=== PATIENT | female | born 1940 | race Caucasian/White ===

== ENCOUNTER 2020-04-01 11:37 | Outpatient (CLI) | payer OTHER, SELFPAY | END 2020-04-01 11:38 | disposition home or self-care (01) | LOC: CHSLAB 11:43 | PROVIDERS: PCP Internal Medicine; Visit Provider Specialist | DX: L85.9 Epidermal thickening, unspecified (principal); C44.41 Basal cell carcinoma of skin of scalp and neck | CPT/HCPCS: 88305 ==

== ENCOUNTER 2020-05-15 08:33 | Outpatient (CLI) | payer OTHER, SELFPAY ==
--- NOTE | 2020-05-15 09:04 | ECHO_ITS ---
Patient Info Name: Es Powell Age: 80 years : 1940 Gender: Female Ht: 62 in Wt: 154 lbs BSA: 1.77 m2 HR: 65 bpm BP: 156 / 71 mmHg Technical Quality: Good Exam Date: 05/15/2020 9:07 AM Exam Location: [facility] Patient Status: Outpatient Admit Date: 05/15/2020 Staff Ordering Physician: Alok Cross DO Sash Installer: Fang Olivares RDCS Attending Provider: Alok Cross DO Referring Physician: Tay ALICIA; Exam Type: CA echo doppler color flow Study Info Indications - cardiac murmur Complete two-dimensional, color flow and Doppler transthoracic echocardiogram is performed. Summary 1. Left ventricular chamber dimension is normal. 2. Left ventricular systolic function is normal, estimated at 65-70%. 3. The left ventricular diastolic function is grade I diastolic dysfunction. 4. E/e' 11 is mildly elevated. 5. There is mild aortic valve sclerosis. 6. The mitral valve has mildly calcified annulus. 7. There is mild mitral valve regurgitation. 8. There is mild tricuspid valve regurgitation. 9. No pulmonary hypertension, estimated pulmonary arterial systolic pressure is 37 mmHg. Left Ventricle E/e' 11 is mildly elevated. Left ventricular chamber dimension is normal. Left ventricular systolic function is normal, estimated at 65-70%. The left ventricular diastolic function is grade I diastolic dysfunction. Right Ventricle Right ventricular chamber dimension is normal. Right ventricular systolic function is normal. Left Atria Left atrial chamber dimension is normal. Right Atria Right atrial chamber dimension is normal. Aortic Valve The aortic valve is probable trileaflet. There is mild aortic valve sclerosis. There is no aortic valve stenosis. There is no aortic valve regurgitation. Pulmonic Valve There is no pulmonic regurgitation. Mitral Valve The mitral valve has mildly calcified annulus. There is no mitral valve stenosis. There is mild mitral valve regurgitation. Tricuspid Valve There is mild tricuspid valve regurgitation. No pulmonary hypertension, estimated pulmonary arterial systolic pressure is 37 mmHg. Pericardium/Pleural There is no pericardial effusion. Inferior Vena Cava Normal inferior vena cava with >50% collapse upon inspiration consistent with normal right atrial pressure, 5 mmHg. Aorta The aortic root size at the sinus of Valsalva is normal. Left Ventricular Outflow Tract Name Value Normal LVOT 2D LVOT Diameter 2.0 cm LVOT Doppler LVOT Peak Gradient 5 mmHg LVOT Mean Gradient 3 mmHg LVOT VTI 27 cm LVOT VTI/AV VTI Ratio 0.7 LVOT Stroke Volume 82 ml LVOT CO 14.8 l/min LVOT CI 8.3 l/min/m2 Pulmonic Valve Name Value Normal PV Doppler
== END 2020-05-15 08:34 | disposition home or self-care (01) ==
PROVIDERS: PCP Internal Medicine; Visit Provider Internal Medicine Cardiovascular Disease
DX: R01.1 Cardiac murmur, unspecified (principal); I08.3 Combined rheumatic disorders of mitral, aortic and tricuspid valves
CPT/HCPCS: 93306

== ENCOUNTER 2021-04-26 09:46 | Outpatient (CLI) | payer OTHER, SELFPAY ==
--- NOTE | ~2021-04-26 | US_ITS ---
EXAMINATION: US carotid duplex BI DATE: 04/26/2021 11:54 INDICATION: Carotid bruit TECHNIQUE: Grayscale, color Doppler, and pulsed Doppler images of the cervical carotid arteries were obtained. The degree of vessel stenosis is placed in one of the following categories: normal, <50%, 5 0-69%, >=70% but less than near-occlusion, near-occlusion, or total occlusion. Note that percent sten osis relative to normal distal artery lumen diameter is indirectly measured from velocity measurement s as described by Dejon, et al. Radiology 2003; 229:340-346. Notes: Normal: Peak systolic velocity <125 centimeters/sec and no plaque <50%. Peak systolic velocity <125 ( EDV <40; ICA/CCA PSV ratio <2.0; used these factors only a tandem lesions or low cardiac output or co ntralateral disease) 50-69 %: PSV 125-230 (EDV 40-100; ratio 2-4) >= 70% but less than near occlusion: PSV greater than 230 (EDV > 100; ratio> 4.0) Near Occlusion: PSV that is variable; markedly narrowed lumen Occlusion: Absent flow on color/spectral Doppler and no lumen on tapia scale. COMPARISON: None. FINDINGS: RIGHT: The right common carotid artery (CCA) peak systolic velocity (PSV) is 93 cm/s. The right internal car otid artery (ICA) PSV is 152 cm/s. The right ICA end-diastolic velocity (EDV) is 40 cm/s. The right I CA/CCA PSV ratio is 1.6. The external carotid artery (ECA) PSV is 165 cm/s. There is antegrade flow i n the right vertebral artery. LEFT: The left CCA PSV is 105 cm/s. The left ICA PSV is 155 cm/s. The left ICA EDV is 30 cm/s. The left ICA /CCA PSV ratio is 1.5. The ECA PSV is 137 cm/s. There is antegrade flow in the left vertebral artery . IMPRESSION: 1. 50-69% stenosis in the right internal carotid artery by sonographic criteria. 2. 50-69% stenosis in the left internal carotid artery by sonographic criteria. Reviewed, dictated and finalized at location A. IMPRESSION: 1. 50-69% stenosis in the right internal carotid artery by sonographic criteria . 2. 50-69% stenosis in the left internal carotid artery by sonographic criteria.
--- NOTE | ~2021-04-26 | MR_ITS ---
EXAMINATION: MR cervical spine wo con DATE: 04/26/2021 11:03 INDICATION: Neck pain. TECHNIQUE: Magnetic resonance imaging (MRI) of the cervical spine was performed without intravenous c ontrast. Sequences included sagittal T2-weighted FSE, sagittal STIR FSE, sagittal T1-weighted FSE, ax ial MERGE, and axial T2-weighted FSE. COMPARISON: None FINDINGS: Bone alignment is normal. Vertebral body heights are normal. There is mild decreased disc h eight at C3-C4. There is severely decreased disc height at C4-C5 with interbody fusion. There is mode rately decreased disc height at C5-C6 and mildly decreased disc height at C6-C7. The spinal cord sign al intensity is normal. The following disc levels are specifically discussed: C2-C3: The disc does not extend beyond the endplate margin. There is no uncovertebral joint osteoarth ritis. There is severe right and mild left facet joint osteoarthritis. There is mild right neural for aminal stenosis. There is no central canal stenosis. C3-C4: There is a central protrusion. There is moderate bilateral uncovertebral joint osteoarthritis. There is severe bilateral facet joint osteoarthritis. There is moderate and mild left neural foramin al stenosis. There is mild central canal stenosis with ventral indentation of the spinal cord. C4-C5: The disc does not extend beyond the endplate margin. There is mild bilateral uncovertebral ra nt hypertrophy. There is ankylosis of the facet joints with moderate hypertrophy. There is no neural foraminal stenosis. There is no central canal stenosis. C5-C6: The disc is bulging. There is severe bilateral uncovertebral joint osteoarthritis. There is se abdulaziz bilateral facet joint osteoarthritis. There is mild bilateral neural foraminal stenosis. There i s mild central canal stenosis with ventral indentation of the spinal cord. C6-C7: The disc is bulging. There is mild bilateral uncovertebral joint osteoarthritis. There is srinivasan re bilateral facet joint osteoarthritis. There is mild bilateral neural foraminal stenosis. There is mild central canal stenosis. C7-T1: The disc does not extend beyond the endplate margin. There is no uncovertebral joint osteoarth ritis. There is moderate bilateral facet joint osteoarthritis. There is mild bilateral neural foramin al stenosis. There is no central canal stenosis. IMPRESSION: 1. Moderate cervical spondylosis. Reviewed, dictated and finalized at location A.
== END 2021-04-26 09:47 | disposition home or self-care (01) ==
PROVIDERS: PCP Internal Medicine; Visit Provider Internal Medicine
DX: M47.892 Other spondylosis, cervical region (principal); I65.23 Occlusion and stenosis of bilateral carotid arteries
CPT/HCPCS: 72141; 93880

== ENCOUNTER 2022-12-31 11:54 | Outpatient (CLI) | payer MEDICARE, SELFPAY ==
[2022-12-31 12:25] LABS: Alanine Aminotransferase 24 U/L (6-35); Albumin Level 4.2 g/dL (3.5-5.1); Alkaline Phosphatase 103 U/L (38-126); Anion Gap 2 mmol/L (8-16); Aspartate Amino Transferase 31 U/L (14-36); Bilirubin,Total 0.4 mg/dL (0.2-1.3); Blood Urea Nitrogen 24 mg/dL (7-17); Calcium 9.6 mg/dL (8.4-10.2); Carbon Dioxide 33 mmol/L (22-30); Chloride 103 mmol/L (98-107); Cholesterol 197 mg/dL (0-200); Estimated Glomerular Filt Rate 53; Glucose 83 mg/dL (65-110); HDL Direct 47 mg/dL; Magnesium 2.2 mg/dL (1.6-2.3); Potassium 4.2 mmol/L (3.4-5.0); Sodium 138 mmol/L (137-145); Triglycerides 172 mg/dL (<150)
[2022-12-31 12:36] LABS: LDL Cholesterol Direct 107 mg/dL
== END 2022-12-31 11:55 | disposition home or self-care (01) ==
LOC: ANHLAB 11:58
PROVIDERS: PCP Internal Medicine; Visit Provider Internal Medicine Cardiovascular Disease
DX: E78.5 Hyperlipidemia, unspecified (principal)
CPT/HCPCS: 36415; 80053; 80061; 83735

== ENCOUNTER 2023-01-20 12:11 | Outpatient (CLI) | payer MEDICARE, SELFPAY ==
--- NOTE | ~2023-01-20 | US_ITS ---
EXAMINATION: US carotid duplex BI DATE: 01/20/2023 15:10 INDICATION: Occlusion and stenosis of unspecified carotid artery TECHNIQUE: Grayscale, color Doppler, and pulsed Doppler images of the cervical carotid arteries were obtained. The degree of vessel stenosis is placed in one of the following categories: normal, <50%, 5 0-69%, >=70% but less than near-occlusion, near-occlusion, or total occlusion. Note that percent sten osis relative to normal distal artery lumen diameter is indirectly measured from velocity measurement s as described by Dejon, et al. Radiology 2003; 229:340-346. COMPARISON: None. FINDINGS: RIGHT: The right common carotid artery (CCA) peak systolic velocity (PSV) is 76 cm/s. The right internal car otid artery (ICA) PSV is 89 cm/s. The right ICA end-diastolic velocity (EDV) is 17 cm/s. The right IC A/CCA PSV ratio is 1.2. Grayscale and color Doppler images yield an estimate of <50% diameter reducti on from plaque in the ICA. The external carotid artery (ECA) PSV is 103 cm/s. There is antegrade flow in the right vertebral artery. LEFT: The left CCA PSV is 103 cm/s. The left ICA PSV is 90 cm/s. The left ICA EDV is 21 cm/s. The left ICA/ CCA PSV ratio is 0.9. Grayscale and color Doppler images yield an estimate of <50% diameter reduction from plaque in the ICA. The ECA PSV is 87 cm/s. There is antegrade flow in the left vertebral artery . IMPRESSION: 1. <50% stenosis in the right internal carotid artery. 2. <50% stenosis in the left internal carotid artery. Reviewed, dictated and finalized at location A.
--- NOTE | 2023-01-20 12:13 | ECHO_ITS ---
Patient Info Name: Es Powell Age: 82 years : 1940 Gender: Female Ht: 61 in Wt: 258 lbs BSA: 2.32 m2 HR: 54 bpm BP: 145 / 77 mmHg Technical Quality: Fair Exam Date: 01/20/2023 1:05 PM Exam Location: [facility] Patient Status: Outpatient Admit Date: 01/20/2023 Staff Ordering Physician: Alok Cross DO Maintenance Supervisor 2Nd Shift: Rosalie Cano RDCS Attending Provider: Alok Cross DO Referring Physician: Tay ALICIA; Exam Type: CA echo doppler color flow Study Info Indications R60.0 - Localized edema Complete two-dimensional, color flow and Doppler transthoracic echocardiogram is performed. Summary 1. Complete two-dimensional, color flow and Doppler transthoracic echocardiogram is performed. 2. Left ventricular chamber dimension is normal. 3. Left ventricular systolic function is normal, estimated at 60-65%. 4. There is mild concentric increased left ventricular wall thickness. 5. The left ventricular diastolic function is grade I diastolic dysfunction. 6. E/e' 14 is mildly elevated. 7. Global longitudinal strain is abnormal at -15.4%. 8. There is mild aortic valve sclerosis. 9. There is mild mitral valve regurgitation. 10. There is trace tricuspid valve regurgitation. 11. Mild pulmonary hypertension, estimated pulmonary arterial systolic pressure is 40 mmHg. Left Ventricle E/e' 14 is mildly elevated. Global longitudinal strain is abnormal at -15.4%. Left ventricular chamber dimension is normal. Left ventricular systolic function is normal, estimated at 60-65%. There is mild concentric increased left ventricular wall thickness. The left ventricular diastolic function is grade I diastolic dysfunction. Right Ventricle Right ventricular systolic function is normal and with normal TAPSE 2.1 cm. Right ventricular chamber dimension is normal. Left Atria Left atrial chamber dimension is normal. Right Atria Right atrial chamber dimension is normal. Aortic Valve The aortic valve is trileaflet. There is mild aortic valve sclerosis. There is no aortic valve stenosis. There is no aortic valve regurgitation. Pulmonic Valve There is no pulmonic regurgitation. Mitral Valve There is no mitral valve stenosis. There is mild mitral valve regurgitation. Tricuspid Valve There is trace tricuspid valve regurgitation. Mild pulmonary hypertension, estimated pulmonary arterial systolic pressure is 40 mmHg. Pericardium/Pleural There is no pericardial effusion. Inferior Vena Cava Normal inferior vena cava with >50% collapse upon inspiration consistent with normal right atrial pressure, 5 mmHg. Aorta The aortic root size at the sinus of Valsalva is normal. Left Ventricular Outflow Tract Name Value Normal LVOT 2D LVOT Diameter 1.9 cm LVOT Doppler LVOT Peak Gradient 4 mmHg LVOT Mean Gradient 3 mmHg LVOT VTI 29 cm LVOT VTI/AV VTI Ratio 0.7 LVOT Stroke Volume 80 ml LVOT CO 4.3 l/min LVOT C
== END 2023-01-20 12:12 | disposition home or self-care (01) ==
LOC: ANHCARD 12:12
PROVIDERS: PCP Internal Medicine; Visit Provider Internal Medicine Cardiovascular Disease
DX: I65.23 Occlusion and stenosis of bilateral carotid arteries (principal); R60.0 Localized edema; I08.0 Rheumatic disorders of both mitral and aortic valves; I27.20 Pulmonary hypertension, unspecified
CPT/HCPCS: 93306; 93880

== ENCOUNTER 2023-09-12 08:00 | Outpatient (CLI) | payer MEDICARE, SELFPAY ==
--- NOTE | ~2023-09-12 | NM_ITS ---
EXAMINATION: NM golden stress w perfusion DATE: 09/12/2023 10:43 INDICATION: Chest pain, unspecified. TECHNIQUE: Rest images were obtained following intravenous administration of 10.8 mCi Tc99m tetrofosm in (Myoview). The patient was infused intravenously with Lexiscan (regadenoson). Then, 32 mCi Tc99m t etrofosmin (Myoview) was administered intravenously, and stress images were obtained. Data was recons tructed into short axis and horizontal and vertical long axis SPECT images. Gated SPECT images were a lso obtained. COMPARISON: Myocardial perfusion imaging 07/20/17 FINDINGS: There is no definite reversible or fixed perfusion abnormality to suggest ischemia or infar ction. There is no segmental wall motion abnormality. Left ventricular ejection fraction measures > 70%. IMPRESSION: 1. No definite ischemia or infarct. 2. Normal left ventricular ejection fraction measuring >70%. Reviewed, dictated and finalized at location A. NICS SHOP SUPERVISOR
--- NOTE | 2023-09-12 09:10 | EST_ITS ---
Patient Info Name: Es Powell Age: 83 years : 1940 Gender: Female Ht: 61 in Wt: 153 lbs BSA: 1.75 m2 HR: 76 bpm BP: 155 / 68 mmHg Heart Rhythm: Sinus Arrhythmia Exam Date: 09/12/2023 9:20 AM Exam Location: Echo Lab Patient Status: Outpatient Admit Date: 09/12/2023 Staff Ordering Physician: Alok Cross DO Attending Provider: Alok Cross DO Exercise Technologist: Terri Randall CT Exercise Physician: Alok Cross DO Exam Type: CA stress golden w NM Study Info Indications R07.89 - Other chest pain A regadenoson stress test was performed. Summary 1. 1. Abnormal lexiscan stress test for ischemic ST changes by ECG criteria. 2. 2. Baseline hypertension. 3. 3. Aminophylline reversal 100 mg IV x 1 given for intolerable symptoms with lexiscan. 4. 4. Nuclear scan to follow and will be reported separatey. Please correlate with it. 5. 5. Patient informed of the above results. Protocol: Lexiscan Stress ECG Details Stage: REST Duration (min): 10 min : 42 sec HR (bpm): 63 SBP (mmHg): 155 DBP (mmHg): 68 Stage: STAGE 1 Duration (min): 1 min : 0 sec HR (bpm): 107 SBP (mmHg): 165 DBP (mmHg): 57 Stage: RECOVERY Duration (min): 1 min : 0 sec HR (bpm): 104 SBP (mmHg): 165 DBP (mmHg): 57 Stage: RECOVERY Duration (min): 2 min : 0 sec HR (bpm): 78 SBP (mmHg): 165 DBP (mmHg): 57 Stage: RECOVERY Duration (min): 3 min : 0 sec HR (bpm): 83 SBP (mmHg): 153 DBP (mmHg): 58 Stage: RECOVERY Duration (min): 4 min : 0 sec HR (bpm): 78 SBP (mmHg): 153 DBP (mmHg): 58 Stage: RECOVERY Duration (min): 4 min : 55 sec HR (bpm): 69 SBP (mmHg): 146 DBP (mmHg): 57 Rest HR: 63 bpm Peak HR: 109 bpm Rest Sys BP: 155 mmHg Peak Sys BP: 165 mmHg Max Pred HR: 135 bpm % Max Pred HR: 81 % Target HR: 115 bpm Max RPP: 17,985 bpm*mmHg Termination Reason: Completed protocol Cardiac Symptoms: Shortness of breath Total Time: 1 min : 0 sec Rest Oden BP: 68 mmHg Peak Oden BP: 57 mmHg Total Dose: 0.4 mg Resting ECG Sinus rhythm wit marked sinus arrhythmia. Stress ECG [address] depression in anterolat/inf leads. Arrhythmias None. Report Signatures
== END 2023-09-12 08:01 | disposition home or self-care (01) ==
PROVIDERS: PCP Student in an Organized Health Care Education/Training Program; Visit Provider Internal Medicine Cardiovascular Disease
DX: R07.9 Chest pain, unspecified (principal); I10 Essential (primary) hypertension
CPT/HCPCS: 78452; 93017; A9502; J0280; J2785

== ENCOUNTER 2025-01-23 09:35 | Outpatient (CLI) | payer MEDICARE, SELFPAY ==
--- NOTE | 2025-01-23 09:51 | ECHO_ITS ---
Patient Info Name: Es Powell Age: 84 years : 1940 Gender: Female Ht: 60 in Wt: 147 lbs BSA: 1.70 m2 HR: 53 bpm BP: 147 / 61 mmHg Technical Quality: Fair Exam Date: 01/23/2025 10:02 AM Exam Location: Echo Lab Patient Status: Outpatient Admit Date: 01/23/2025 Staff Ordering Physician: Alok Cross DO Digital Sales Executive: Summer Jane RDCS Attending Provider: Alok Cross DO Referring Physician: Tay ALICIA; Exam Type: CA echo doppler color flow Study Info Indications R06.09 - Other forms of dyspnea Complete two-dimensional, color flow and Doppler transthoracic echocardiogram is performed. Summary 1. Complete two-dimensional, color flow and Doppler transthoracic echocardiogram is performed. 2. Left ventricular chamber dimension is normal. 3. Left ventricular systolic function is normal, estimated at 60-65%. 4. There is mild concentric increased left ventricular wall thickness. 5. The left ventricular diastolic function is grade I diastolic dysfunction. 6. E/e' 9 is minimally elevated. 7. There is moderate aortic valve sclerosis. 8. There is moderate aortic valve stenosis with a peak velocity of 177 cm/s, mean gradient of 7 mmHg, and aortic valve area of 1.3 cm2. 9. There is trace mitral valve regurgitation. 10. There is mild tricuspid valve regurgitation. 11. No pulmonary hypertension, estimated pulmonary arterial systolic pressure is 34 mmHg. Left Ventricle E/e' 9 is minimally elevated. Left ventricular chamber dimension is normal. Left ventricular systolic function is normal, estimated at 60-65%. There is mild concentric increased left ventricular wall thickness. The left ventricular diastolic function is grade I diastolic dysfunction. Right Ventricle Right ventricular systolic function is normal and with normal TAPSE 2.2 cm. Right ventricular chamber dimension is normal. Left Atria Left atrial chamber dimension is normal. Right Atria Right atrial chamber dimension is normal. Aortic Valve The aortic valve is trileaflet. There is moderate aortic valve sclerosis. There is moderate aortic valve stenosis with a peak velocity of 177 cm/s, mean gradient of 7 mmHg, and aortic valve area of 1.3 cm2. There is no aortic valve regurgitation. Pulmonic Valve There is no pulmonic regurgitation. Mitral Valve There is no mitral valve stenosis. There is trace mitral valve regurgitation. Tricuspid Valve There is mild tricuspid valve regurgitation. No pulmonary hypertension, estimated pulmonary arterial systolic pressure is 34 mmHg. Pericardium/Pleural There is no pericardial effusion. Inferior Vena Cava Normal inferior vena cava with >50% collapse upon inspiration consistent with normal right atrial pressure, 5 mmHg. Aorta The aortic root size at the sinus of Valsalva is normal. Left Ventricular Outflow Tract Name Value Normal LVOT 2D LVOT Diameter 1.5 cm LVOT Doppler LVOT Peak Gradient 5 mmHg LVOT Mean Gradient 3 mmHg LVOT VTI 28 cm LVOT VTI/AV VTI Ratio 0.7 LVOT Stroke Volume 53 ml LVOT CO 9.0 l/min LVOT CI 5.3 l/min/m2 Pulmonic Valve Name Value Normal PV Doppler PV Peak Gradient 4 mmHg Mitral Valve Name Value Normal MV Doppler MV Decel Guadalupe 354 cm/s2 MV PHT 63 ms MV Area (PHT) 3.5 cm2 4.0-5.0 MV Diastolic Function MV E Peak Velocity 77 cm/s MV A Peak Velocity 94 cm/s MV E/A 0.8 MV Decel Time 217 ms MV Annular TDI MV E/e' (Septal) 10.0 <=8.0 MV E/e' (Lateral) 9.8 <=8.0 MV E/e' (Average) 9.9 Tricuspid Valve Name Value Normal TV Regurgitation Doppler TR Peak Velocity 272 cm/s TR Peak Gradient 29 mmHg Estimated PAP/RSVP RA Pressure 5 mmHg <=5 PA Systolic Pressure 34 mmHg <36 RV Systolic Pressure 34 mmHg <36 Aorta Name Value Normal Ascending Aorta Ao Root Diameter (MM) 2.1 cm Ao Root Diam Index (MM) 1.3 cm/m2 Aortic Valve Name Value Normal AV Doppler AV Peak Velocity 177 cm/s AV Peak Gradient 12 mmHg AV Mean Gradient 7 mmHg AV VTI 41 cm AV Area (Cont Eq VTI) 1.3 cm2 >=3.0 AV Area (Cont Eq Jaleel) 1.1 cm2 AV Regurgitation 2D LVOT Area 1.9 cm2 Ventricles Name Value Normal LV Dimensions 2D/MM IVS Diastolic Thickness (2D) 1.2 cm 0.6-1.0 LVID Diastole (2D) 3.7 cm 3.8-5.2 LVIW Diastolic Thickness (2D) 1.0 cm 0.6-0.9 LVID Systole (2D) 2.4 cm 2.2-3.5 LVOT Diameter 1.5 cm LV Mass (2D Cubed) 125.78 g 67.00-162.00 LV Mass Index (2D Cubed) 74 g/m2 43-95 Relative Wall Thickness (2D) 0.55 LV Fractional Shortening/Ejection Fraction 2D/MM LV Fractional Shortening (2D) 36 % 27-45 LV EF (2D Teicholz) 66 % 54-74 LV Diastolic Volume (4C MOD) 72 ml LV EF (4C MOD) 74 % LV Diastolic Volume (2C MOD) 49 ml LV EF (2C MOD) 71 % LV Diastolic Volume (BP MOD) 61 ml 46-106 LV Diastolic Volume Index (BP MOD) 36 ml/m2 29-61 LV Systolic Volume (BP MOD) 17 ml 14-42 LV Systolic Volume Index (BP MOD) 10 ml/m2 8-24 LV EF (BP MOD) 72 % 54-74 LV Diastolic Length (4C) 6.5 cm LV Systolic Length (4C) 5.3 cm LV Stroke Volume (4C MOD) 54 ml Atria Name Value Normal LA Dimensions LA Dimension (MM) 3.3 cm 2.7-3.8 LA Volume (4C A-L) 37 ml LA Volume (BP A-L) 37 ml RA Dimensions RA Area (4C) 11.5 cm2 <=18.0 Report Signatures
--- OUTSIDE RECORDS SUMMARY | 2025-01-23 10:26 | XMS_ITS | Continuity of Care Document ---
[facility] Address [address] [place] [address] Phone Care Team Providers Care Church History Professor Name Role Phone Arthur Melendez MD Unavailable Unavailable Advance Directives Directive Yes / No Effective Date File Name No Information Encounters Encounter Description Practice Location Reason(s) For Visit Diagnoses Date Provider Providers Copied on Encounter [facility], [address], [place], [place], [id number], [place] tel:[phone] [facility] No Information Nora Gibson. [address] , [place], [place], [id number], [place]. tel:[phone] Referring Provider: Marcelo Peterson, [address] , [place], [address]. tel:[phone] Family History Family Member Type Diagnosis Age At Onset No Information Payers Payer name Insurance type Covered alliance party ID Authoriza tion(s) MEDICARE MB [id number] [employer] MED[employer]ARE SUPPELEMENT CI [id number] Social History Type Description Quantity Date Captured Comments Sex Female Smoking Status No Information Chief Complaint And Reason For Visit No Information Reason For Referral Reason For Referral No Information History Of Present Illness Encounter Date Complaint History Of Prese nt Illness No Information Functional Status Date Functional Assessmen t No Information Instructions Date Instruction Additional Infor mation No Information Assessments Type Assessment Date No Information Patient Care Teams Name Effective Dates (start - stop) Status Members No Information
--- OUTSIDE RECORDS SUMMARY | 2025-01-23 10:26 | XMS_ITS | Clinical Summary ---
Author Organization [facility] Address [facility] [place] [address] Care Team Providers Care Round Cutter Operator Name Role Phone Wil Castro MD Primary Care Provider [phone] Source Comments [facility],non-owned Affiliates and Associated Physician Practices is amultiple site organization consisting of ambulatory clinics and hospital sitesin [place], [place], [place] and [place]. This disclosure is being madepursuant to the Care Everywhere program and may not contain all information available regarding this patient. Last updated 18.[facility] Allergies Active Allergy Reactions Criticality Noted Date Comments Adhesive Sensitivity Rash Low 07/31/2014 Paper tape is ok Codeine 07/31/2014 Tylenol with codeine/ really agitated Lactose GI Discomfort Low 08/01/2014 Lactose intolerant-is ok to have with med-Lactaid Latex Rash,Swelling Low 07/31/2014 Rubber gloves/ swelling of hands and rash Tetracycline 07/31/2014 Tetramycin - rash, hives, shaky Medications * Be aware that medications may not be up to date on this document. Alwaysverify current medications with the patient. Medication Sig Dispensed Refills Start Date End Date Status levothyroxine (SYNTHROID) 75 MCG tablet Take 75 mcg by mouth daily before breakfast. Active esomeprazole (NEXIUM) 40 MG capsule Take 40 mg by mouth every 2 days. Active furosemide (LASIX) 40 MG tablet Take 40 mg by mouth once daily. Active montelukast (SINGULAIR) 10 MG tablet Take 10 mg by mouth once daily as needed. Active olmesartan (BENICAR) 20 MG tablet Take 20 mg by mouth once daily. Active cyanocobalamin (VITAMIN B-12) injection Inject 0.1 mcg into muscle every 7 days. Active Xbeziep-Aiyghaupi-Icnm min D (CITRACAL SLOW RELEASE) 600-40-500 MG-MG-UNIT TB24 Take 1 Tab by mouth 2 times daily. Active lactase (LACTAID) 3000 UNITS tablet Take 1 Tab by mouth 4 times daily as needed with food for Other. Active oxyCODONE-acetaminophe n (PERCOCET) 5-325 MG tablet Take 1 Tab by mouth every 4 hours as needed for Pain. 30 Tab 0 08/02/2014 Active hydrocodone-acetaminop hen (NORCO) 5-325 MG tablet Take 1 Tab by mouth every 4 hours as needed for Pain. 30 Tab 0 08/02/2014 Active Social History Tobacco Use Types Packs/Day Years Used Date Smoking Tobacco: Never Smokeless Tobacco: Never Alcohol Use Standard Drinks/Week Comments Yes 0 (1 standard drink = 0.6 oz pur e alcohol) Rare Sex and Gender Information Value Date Recorded Sex Assigned at Not on file Gender Identity Not on file Sexual Orientation Not on file Last Filed Vital Signs Vital Sign Reading Time Taken Comments Blood Pressure 127/56 08/02/2014 4:11 PM CDT Pulse 76 08/02/2014 4:11 PM CDT Temperature 36.6 C (97.9 F) 08/02/2014 4:11 PM CDT Respiratory Rate 16 08/02/2014 4:11 PM CDT Oxygen Saturation 96% 08/02/2014 4:11 PM CDT Inhaled Oxygen Concentration - - Weight 71.7 kg (158 lb) 08/01/2014 10:25 AM CDT Height 157.5 cm (5' 2.01 ) 08/01/2014 10:25 AM C DT Body Mass Index 28.89 08/01/2014 10:25 AM CDT Plan of Treatment Health Maintenance Due Date Last Done Comments BONE DENSITY TESTING 1940 MEDICARE AWV 12 MONTHS 1940 DTAP/TDAP/TD VACCINES (1 - Tdap) 1957 PNEUMOCOCCAL VACCINE 50+ (1 of 1 - PCV) 02/26/1988 ZOSTER VACCINE (1 of 2) 02/26/1988 Respiratory Syncytial Virus (RSV) Vaccine Pt: or over 60 yrs (1 - 1-dose 75+ series) 2013 COVID-19 VACCINE (2023-2 5 season) 2024 INFLUENZA VACCINE (#1) 2024 08/14/2019 DEPRESSION SCREENING 10/31/2024 HEPATITIS B VACCINE Aged Out No longe r eligible based on patient's age to complete this topic HIB VACCINE Aged Out No longer eligi ble based on patient's age to complete this topic HPV VACCINE Aged Out No longer eligi ble based on patient's age to complete this topic MENINGOCOCCAL (Group B) VACC INE SHARED DECISION-MAKING Aged Out No longer eligibl e based on patient's age to complete this topic MENINGOCOCCAL GROUPS A/C/Y/W VACCINE Aged Out No longer eligible b ased on patient's age to complete this topic Medical Devices Implanted Type Area Oil Well Cable Tool Operator Device Identifier Shelf Expiration Date Model / Serial / Lot Allomend Implanted:Qty: 1 on 08/01/2014 by Cristian Gautam DPM at [facility] Left: Achilles Tendon [employer] 12/13/2015 [id number] / / [id number] Advance Directives * Full Code (Latest Code Status on File) Date Activated Date Inactivated Comments 08/01/2014 5:24 PM 08/02/2014 5:46 PM Care Teams Round Cutter Operator Relationship Specialty Start Date End Date Wil Castro MD [address] [place] [id number] PCP - General Internal Medicine 07/30/14
--- OUTSIDE RECORDS SUMMARY | 2025-01-23 10:26 | XMS_ITS | Clinical Summary ---
Author Organization [facility] [address] [facility] [facility] Address [address] [place] [address] Phone Care Team Providers Care Pamphlet Distributor Name Role Phone Malik To MD Unavailable Carolina Dumont OD Unavailable [phone] Viktoria Andre MD Primary Care Provider [phone] Alok Cross DO Unavailable [phone] Allergies Active Allergy Reactions Criticality Noted Date Comments Adhesive Rash Medium 07/31/2014 Paper tape is ok Codeine Itching,Hallucinations Medium 07/31/2014 Tylenol with codeine/ really agitated Lactose Nausea & Vomiting Low 08/01/2014 Lactose intolerant-is ok to have with med-Lactaid Latex Rash,Swelling Medium 07/31/2014 Rubber gloves/ swelling of hands and rash Nitrofurantoin Unknown Low Macrobid -pt unsure of reaction Oxytetracycline Hives,Mental status changes Medium Streptomycin Hypotension High Medications olmesartan (BENICAR) 20 mg tabletIndication s:hypertension,i f elevated BP Take 1 tablet (20 mg total) by mouth as needed Active cholecalciferol (VITAMIN D-3) 5,000 unit tabletIndication s:Vitamin D Deficiency Take 1 tablet (5,000 Units total) by mouth professor of early childhood education before breakfast Active pravastatin (PRAVACHOL) 10 mg tabletIndication s:hyperlipidemia Take 1 tablet (10 mg total) by mouth nightly Active calcium carb and citrate-vitD3 600 mg-12.5 mcg (500 unit) tablet extended releaseIndicatio ns:Prevention of Vitamin D Deficiency,Vitam in D Deficiency Take 1 tablet by mouth professor of early childhood education before breakfast Active multivit-min/iro n/folic/hzl306 (HAIR, SKIN AND NAILS ADVANCED ORAL) Take 1 tablet by mouth professor of early childhood education before breakfast Active C,E,zinc,copper 11/xbzkd1b/lut (OCUVITE ADULT 50 PLUS ORAL)Indications :eye health Take 1 capsule by mouth professor of early childhood education before breakfast Active hydrOXYzine (ATARAX) 25 mg tabletIndication s:anxiety Take 1 tablet (25 mg total) by mouth every 4 (four) hours as needed 1 Active montelukast (SINGULAIR) 10 mg tabletIndication s:Seasonal Allergic Rhinitis Take 1 tablet (10 mg total) by mouth nightly 1 Active ketoconazole (NIZORAL) 2 % shampooIndicatio ns:Dandruff Apply 1 application topically as needed 2 Active hydrocortisone 2.5 % creamIndications :Skin Inflammation Apply 1 application topically as needed 2 Active hydroCHLOROthiaz alexa (HYDRODIURIL) 25 mg tabletIndication s:hypertension Take 1 tablet (25 mg total) by mouth professor of early childhood education before breakfast 2 Active cyanocobalamin (Vitamin B-12) 1,000 mcg/mL injectionIndicat ions:Prevention of Vitamin B12 Deficiency Inject 10 mL (10,000 mcg total) under the skin every 2 (two) weeks 2 Active Synthroid 88 mcg tabletIndication s:hypothyroidism Take 1 tablet (88 mcg total) by mouth every morning 2 Active omeprazole (PriLOSEC) 40 mg capsule Take 40 mg by mouth as needed 3 Active fluorouraciL (EFUDEX) 5 % creamIndications :superficial basal cell carcinoma Apply 1 application topically as needed Active gabapentin (NEURONTIN) 100 mg capsule Take 1 at HS, if tolerated after 3-5 days may increase to 1 BID, if tolerated after 3-5 days may increase to 1 TID 90 capsule 3 Active Additional Information Patient taking differently: 100 mg oral As needed, Take 1 at HS, if tolerated after 3-5 days may increase to 1 BID, if tolerated after 3-5 days may increase to 1 TID,Indications: Neuropathic Pain, Informant: Self, Reported on 02/18/2023 methocarbamoL (ROBAXIN) 500 mg tablet 3 Active losartan (COZAAR) 50 mg tablet Take 1 tablet (50 mg total) by mouth daily 3 Active lisinopriL (PRINIVIL,ZESTRI L) 10 mg tablet 3 Active allopurinoL (ZYLOPRIM) 100 mg tablet 3 Active aspirin 81 mg chewable tablet 3 Active Active Problems Problem Noted Date Diagnosed Date Atherosclerosis of artery of both lower extremit ies 02/05/2022 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 Likely has degenerative changes in neck, shoulders, spine which may be contributing to her pain complaints. Overall symptoms appear stable. Has no clinical or serologic evidence of an inflammatory arthritis. Is noted pt not requiring any analgesics. Myalgia 11/04/2017 Assessment & Plan (11/15/2017 11:48 AM HUMAN RESOURCES EXECUTIVE): Has occasional stiffness in neck, shoulders, spine. Has no current pain today. Is not using any analgesics. Did not respond to prednisone 30 mg daily as prescribed by PCP. ESR elevated at 43 of unknown significance although remaining serology is unremarkable. At this time I see no clinical or serologic evidence of an underlying autoimmune inflammatory arthritis, myositis, lupus, or other connective tissue disease. I suspect she may have some OA in neck, shoulders, spine which may be contributing to symptoms. Symptoms not severe per pt. No need for any specific intervention at this time although if symptoms progress or if there is concern for an underlying connective tissue disease will have her come back for follow up. F/u prn. Assessment & Plan (11/04/2017 2:38 PM HUMAN RESOURCES EXECUTIVE): Has has pain in bilat thighs>neck and shoulders for ~8 years. Pain in thighs described as tingling, sharp/stabby pain which is intermittent. Has occasional stiffness and neck and shoulders although nothing severe per pt and is not daily. Was given prednisone 30 mg daily tapered to off over 9 days last month with no great benefit in symptoms. Has elevated esr at 45 and CRP 26.7 mg/L per recent labs. ESR was 55 back in may. Pt has no tenderness on exam today and strength is intact. Uncertain etiology of symptoms although with no response to prednisone and no current tenderness PMR is less likely. An inflammatory myositis is possible although less likely with intact strength on exam. I suspect OA in neck and shoulders causing her symptoms based on history. Does have h/o L-spine fusion 10 years ago and is to have revision of this on 11/17/16 and based on her description of symptoms her lower extremity pain may be secondary to this. Is noted recent labs reveal DEBORAH, Rf, anti-ccp, TSH, fT4 wnl. Is noted pt not using any analgesics. Will obtain labs as below. F/u 2 weeks. Sicca 11/04/2017 Assessment & Plan (11/15/2017 11:49 AM HUMAN RESOURCES EXECUTIVE): Has ongoing oral and ocular dryness. Does have parotid gland swelling on exam. Serology negative for Sjogren's. Pt encouraged to continue symptomatic treatment of sicca complaints. Assessment & Plan (11/04/2017 2:37 PM HUMAN RESOURCES EXECUTIVE): Has ongoing oral>ocular dryness. Does have parotid gland swelling on exam and Sjogren's Syndrome remains possible. Cont symptomatic treatment. Will obtain labs as below. 1st degree AV block 08/18/2017 Abnormal cardiovascular stress test 08/18/2017 SIEGEL (dyspnea on exertion) 08/18/2017 Heart palpitations 08/18/2017 Preoperative cardiovascular examination 08/18/20 17 Systolic murmur 08/18/2017 Mixed hyperlipidemia 07/10/2014 Unspecified cataract 07/10/2014 Arthritis 07/10/2014 Cerumen impaction 08/23/2013 HTN (hypertension), benign 08/13/2013 Foot pain 07/26/2013 Low back pain 06/22/2013 Overview (04/04/2020): Last Assessment & Plan: Has ongoing low back pain. Is s/p L-spine fusion 10 years ago and is to have revision of this in 2 days. Per pt she has a nerve impingement and this may be contributing to her lower extremity pain described as intermittent sharp, stabbing pain. Assessment & Plan (08/28/2019 1:23 PM CDT): Ms. Powell has low back pain and right leg pain. She has a prior fusion by Dr. Dover at L3-4. We will get a CT myelogram to look for any compression of the L5 nerve root as well as to assess instrument placement and arthrodesis. We will speak to her by phone about the results. We will set up a backup appointment in four months time for re-evaluation. We discussed that she may benefit from less invasive options including injections prior to considering surgery. Assessment & Plan (11/15/2017 11:43 AM HUMAN RESOURCES EXECUTIVE): Has ongoing low back pain. Is s/p L-spine fusion 10 years ago and is to have revision of this in 2 days. Per pt she has a nerve impingement and this may be contributing to her lower extremity pain described as intermittent sharp, stabbing pain. Gout 05/24/2013 Arthralgia of toe 04/18/2013 Edema 04/18/2013 Ovarian failure 04/18/2013 Flushing 03/20/2013 Malaise 03/20/2013 Cellulitis of ankle 01/19/2013 Chest congestion 08/10/2012 Joint pain, hip 07/27/2012 Limb pain 07/27/2012 Fatigue 07/12/2012 Vitamin B12 deficiency 07/12/2012 Immunizations Immunization Administration Dates Next Due Influenza, Trivalent, High D ose, Split, Preservative Free, Intramuscular 08/14/2019 Influenza, Unspecified 08/14/2019 Tdap 11/23/2015 Surgical History Surgery Date Site/Laterality Comments HIP SURGERY 10/31/2002 - 10/30/2003 COLONOSCOPY 10/31/2015 - 10/30/20162020 ACHILLES TENDON REPAIR 08/01/2014 BACK SURGERY 10/31/2014 - 10/30/2015 x2- TOE SURGERY Bilateral most toes on right; bit toe on left HYSTERECTOMY CARPAL TUNNEL RELEASE Bilateral CHOLECYSTECTOMY FL FLUORO GUIDED LUMBAR PUNCTURE 01/07/2023 Right EPIDURAL INJECTION RIGHT CERVICAL THORACIC 1 LEVEL 02/18/2023 Right CATARACT EXTRACTION MOHS SURGERY 10/31/2018 - 10/30/2019 nose Medical History Medical History Date Comments Depression Gastric reflux GERD (gastroesophageal reflux disease) Hypertension Jaundice Osteoporosis Pneumonia Allergic rhinitis Sleep apnea Thyroid disease Urinary tract infection PONV (postoperative nausea and vomiting) Cancer (HCC) of skin, face, n ose, neck, legs and back removed Family History Medical History Relation Name Comments Cancer Father Prostate cancer Father Cancer Mother Colon cancer Mother Diabetes Mother Macular degeneration Mother Thyroid disease Mother Breast cancer Mother's Sister Cancer Mother's Sister Anesthesia problems Neg Hx Glaucoma Neg Hx Retinal detachment Neg Hx Relation Name Status Comments Father Mother Mother's Sister Social History Tobacco Use Types Packs/Day Years Used Date Smoking Tobacco: Never Passive Smoke Exposure: Never Smokeless Tobacco: Never Tobacco Cessation:Counseling Given: No AUDIT-C Answer Date Recorded Q1: How often do you have a drink containing alc ohol? Monthly or less 12/24/2022 Q2: How many drinks containi ng alcohol do you have on a typical day when you are drinking? 1 or 2 12/24/2022 Q3: How often do you have si x or more drinks on one occasion? Never 12/24/2022 Personal Safety Answer Date Recorded Getting School Help Needed Not on file 02/26 Comments Unknown Sex and Gender Information Value Date Recorded Sex Assigned at Not on file Legal Sex Female 6:57 AM HUMAN RESOURCES EXECUTIVE Gender Identity Not on file Sexual Orientation Not on file Occupation Industry Job Start Date Job End Date retired Not on file Not on file Not on file Obstetrics History Last Filed Vital Signs Vital Sign Reading Time Taken Comments Blood Pressure 177/52 02/18/2023 10:20 AM CDT Pulse 64 02/18/2023 10:20 AM CDT Temperature - - Respiratory Rate 12 08/28/2019 11:44 AM CDT Oxygen Saturation 96% 02/18/2023 10:20 AM CDT Inhaled Oxygen Concentration - - Weight 68.9 kg (152 lb) 12/24/2022 8:50 AM HUMAN RESOURCES EXECUTIVE Height 154.9 cm (5' 1 ) 12/24/2022 8:50 AM HUMAN RESOURCES EXECUTIVE Body Mass Index 28.72 12/24/2022 8:50 AM HUMAN RESOURCES EXECUTIVE Plan of Treatment Health Maintenance Due Date Last Done Comments Depression Screening 1940 Hepatitis B Screening 02/26/1958 Pneumococcal vaccine 65+ (1 of 2 - PCV) 1957 Zoster Vaccine (1 of 2) 1959 Well Visit 65+ 2003 Fall Risk Assessment 02/19/2024 02/18/2023 Covid-19 Vaccine ( season) 2024 08/29/2021, 12/30/2020, 11/27/2020 Influenza Vaccine (#1) 2024 08/14/2019, 2018 DTaP/Tdap/Td Vaccine (2 - Td or Tdap) 11/23/2025 Insurance MEDICARE [facility] MED[facility] MEDICARE SUPPLEMENT MEDICARE [facility] Advance Directives For more information, please contact: [phone] Documents on File Type Date Recorded Patient Purchasing And Claims Supervisor Expl anation ADVANCE DIRECTIVE 11/17/2017 Advance Di rective Checklist Care Teams Pamphlet Distributor Relationship Specialty Start [place] [address] [address] PCP - General Family Medicine 07/11/23 Malik To MD [address] [address] Rheumatology 11/15/17 Carolina Dumont OD [address], [place] [address] House Fellow 06/03/23 Alok Cross DO [address] [facility] [address] [place] [address] Cardiology 07/11/23
--- OUTSIDE RECORDS SUMMARY | 2025-01-23 10:26 | XMS_ITS ---
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 Likely has degenerative changes in neck, shoulders, spine which may be contributing to her pain complaints. Overall symptoms appear stable. Has no clinical or serologic evidence of an inflammatory arthritis. Is noted pt not requiring any analgesics. Myalgia 11/04/2017 Assessment & Plan (11/15/2017 11:48 AM RETIREMENT OFFICER): Has occasional stiffness in neck, shoulders, spine. [...] prn. Assessment & Plan (11/04/2017 2:38 PM RETIREMENT OFFICER): Has has pain in bilat thighs>neck and [...] 11/04/2017 Assessment & Plan (11/15/2017 11:49 AM RETIREMENT OFFICER): Has ongoing oral and ocular dryness. Does have parotid gland swelling on exam. Serology negative for Sjogren's. Pt encouraged to continue symptomatic treatment of sicca complaints. Assessment & Plan (11/04/2017 2:37 PM RETIREMENT OFFICER): Has ongoing oral>ocular dryness. Does have parotid [...] surgery. Assessment & Plan (11/15/2017 11:43 AM RETIREMENT OFFICER): Has ongoing low back pain. Is s/p [...] 07/27/2012 Fatigue 07/12/2012 Vitamin B12 deficiency 07/12/2012 Current Treatment and Therapy Plans No current plan information found. Past Treatment and Therapy Plans No past plan information found. Lifetime Dose Tracking * Chemical Lifetime Dose Automatic Entry Manual Entr y Fluoro Time 1.3 minutes 1.3 minutes 0 minutes Air kerma at the reference point (Ka,r) 19.57 mGy 1 9.57 mGy 0 mGy
--- OUTSIDE RECORDS SUMMARY | 2025-01-23 10:26 | XMS_ITS | Referral Summary ---
Author Organization [facility] [address] Address [address] [place] [address] Phone Care Team Providers Care Weather Reporter Name Role Phone Malik To MD Unavailable [phone] Carolina Dumont OD Unavailable [phone] Viktoria Andre MD Primary Care Provider [phone] Alok Cross DO Unavailable [phone] Allergies Active Allergy Reactions Criticality Noted Date [...] 1 tablet (5,000 Units total) by mouth fish and wildlife warden before breakfast Active pravastatin (PRAVACHOL) 10 mg tabletIndication s:hyperlipidemia Take 1 tablet (10 mg total) by mouth nightly Active calcium carb and citrate-vitD3 600 mg-12.5 mcg (500 unit) tablet extended releaseIndicatio ns:Prevention of Vitamin D Deficiency,Vitam in D Deficiency Take 1 tablet by mouth fish and wildlife warden before breakfast Active multivit-min/iro n/folic/ibf329 (HAIR, SKIN AND NAILS ADVANCED ORAL) Take 1 tablet by mouth fish and wildlife warden before breakfast Active C,E,zinc,copper 11/nwoxq3i/lut (OCUVITE ADULT 50 PLUS ORAL)Indications :eye health Take 1 capsule by mouth fish and wildlife warden before breakfast Active hydrOXYzine (ATARAX) 25 mg [...] 1 tablet (25 mg total) by mouth fish and wildlife warden before breakfast 2 Active cyanocobalamin (Vitamin B-12) [...] 11/15/2017 Assessment & Plan (11/15/2017 11:42 AM RESPIRATORY PRACTITIONER): Is s/p left hip replacement x 3 and right hip replacement x 1. Likely has degenerative changes in neck, shoulders, spine which may be contributing to her pain complaints. Overall symptoms appear stable. Has no clinical or serologic evidence of an inflammatory arthritis. Is noted pt not requiring any analgesics. Myalgia 11/04/2017 Assessment & Plan (11/15/2017 11:48 AM RESPIRATORY PRACTITIONER): Has occasional stiffness in neck, shoulders, spine. [...] prn. Assessment & Plan (11/04/2017 2:38 PM RESPIRATORY PRACTITIONER): Has has pain in bilat thighs>neck and [...] 11/04/2017 Assessment & Plan (11/15/2017 11:49 AM RESPIRATORY PRACTITIONER): Has ongoing oral and ocular dryness. Does have parotid gland swelling on exam. Serology negative for Sjogren's. Pt encouraged to continue symptomatic treatment of sicca complaints. Assessment & Plan (11/04/2017 2:37 PM RESPIRATORY PRACTITIONER): Has ongoing oral>ocular dryness. Does have parotid [...] surgery. Assessment & Plan (11/15/2017 11:43 AM RESPIRATORY PRACTITIONER): Has ongoing low back pain. Is s/p [...] Intramuscular 08/14/2019 Influenza, Unspecified 08/14/2019 Tdap 11/23/2015 Social History Tobacco Use Types Packs/Day Years [...] on file Legal Sex Female 6:57 AM RESPIRATORY PRACTITIONER Gender Identity Not on file Sexual Orientation Not on file Occupation Industry Job Start Date Job End Date retired Not on file Not on file Not on file Last Filed Vital Signs Vital Sign Reading Time Taken Comments Blood Pressure 177/52 02/18/2023 10:20 AM CDT Pulse 64 02/18/2023 10:20 AM CDT Temperature - - Respiratory Rate 12 08/28/2019 11:44 AM CDT Oxygen Saturation 96% 02/18/2023 10:20 AM CDT Inhaled Oxygen Concentration - - Weight 68.9 kg (152 lb) 12/24/2022 8:50 AM RESPIRATORY PRACTITIONER Height 154.9 cm (5' 1 ) 12/24/2022 8:50 AM RESPIRATORY PRACTITIONER Body Mass Index 28.72 12/24/2022 8:50 AM RESPIRATORY PRACTITIONER Plan of Treatment Not on file Insurance MEDICARE [facility] Address: [facility] [address] [place] [address] [facility] MEDICARE [employer] MEDICARE SUPPLEMENT MEDICARE [facility] Advance Directives For more information, please contact: [phone] Documents on File Type Date Recorded Patient Appointment Scheduler Expl anation ADVANCE DIRECTIVE 11/17/2017 Advance Di rective Checklist Care Teams Weather Reporter Relationship Specialty [place] [address] [place] [address] PCP - General Family Medicine 07/11/23 Malik To MD [address] [facility] [address] [place] [address] Rheumatology 11/15/17 Carolina Dumont OD [address] [place] [address] Spar Finisher 06/03/23 Alok Cross DO [address] [facility] [address] [facility] [address] [place] [address] Cardiology 07/11/23
--- OUTSIDE RECORDS SUMMARY | 2025-01-23 10:26 | XMS_ITS | Clinical Summary ---
Author Organization [facility] Address [address] [place] [address] Phone Care Team Providers Care Rib Cutter Name Role Phone Zenobia Brandt MD Primary Care Provider [phone] Allergies Active Allergy Reactions Criticality Noted Date Comments Codeine Itching Low 08/23/2017 Latex Rash Low 04/28/2016 Medications levothyroxine 75 mcg tablet Take 75 mcg by mouth daily graphic design professor. Active olmesartan (BENICAR) 20 mg tablet Take 20 mg by mouth daily. Active furosemide (LASIX) 20 mg tablet Take 20 mg by mouth daily. Active esomeprazole (NEXIUM) 20 mg Capsule, Delayed Release(E.C.) Take 40 mg by mouth daily before breakfast. Active pravastatin (PRAVACHOL) 10 mg tablet Take 10 mg by mouth late in the day. Active aspirin (ECOTRIN EC) 81 mg Tablet, Delayed Release (E.C.) Take 81 mg by mouth daily. Active sertraline (ZOLOFT) 25 mg tablet Take 25 mg by mouth daily. 10/21/20 20 Active montelukast (SINGULAIR) 10 mg tablet TAKE 1 TABLET BY MOUTH EVERYDAY AT BEDTIME 01/06/20 21 Active CYANOCOBALAMIN, VITAMIN B-12, INJECTION Inject 0.1 mcg by intramuscular injection. Active silver sulfADIAZINE (SILVADENE) 1 % Cream Apply to affected area 2 times daily. 50 Gram 3 02/20/20 24 Active Active Problems Problem Noted Date Diagnosed Date SIEGEL (dyspnea on exertion) 08/18/2017 Preoperative cardiovascular examination 08/18/20 17 Abnormal cardiovascular stress test 08/18/2017 HTN (hypertension), benign 08/18/2017 Mixed hyperlipidemia 08/18/2017 1st degree AV block 08/18/2017 Heart palpitations 08/18/2017 Systolic murmur 08/18/2017 Family History Medical History Relation Name Comments Colon Cancer Father Colon Cancer Mother Relation Name Status Comments Father Mother Social History Tobacco Use Types Packs/Day Years Used Date Smoking Tobacco: Never Smokeless Tobacco: Never Alcohol Use Standard Drinks/Week Comments No 0 (1 standard drink = 0.6 oz pur e alcohol) Comments No Sex and Gender Information Value Date Recorded Sex Assigned at Not on file Legal Sex Female 9:37 AM CDT Gender Identity Not on file Sexual Orientation Not on file Last Filed Vital Signs Vital Sign Reading Time Taken Comments Blood Pressure 157/56 07/15/2021 10:28 AM CDT Pulse 57 07/15/2021 10:28 AM CDT Temperature 35.8 C (96.5 F) 07/15/2021 10:05 AM CDT Respiratory Rate 18 07/15/2021 10:2 8 AM CDT Oxygen Saturation 97% 07/15/2021 10: 28 AM CDT Inhaled Oxygen Concentration - - Weight 68.9 kg (151 lb 12.8 oz) 07/15/2021 9:03 AM CDT Height 157.5 cm (5' 2 ) 07/15/2021 9:03 AM CDT Body Mass Index 27.76 07/15/2021 9:03 AM CDT Plan of Treatment Health Maintenance Due Date Last Done Comments PNEUMOCOCCAL VACCINE 50+ YEA RS (1 of 1 - PCV) 02/26/1988 ZOSTER VACCINE (1 of 2) 02/26/1988 RSV VACCINE (60+ or ) (1 - 1-dose 75+ series) 2013 INFLUENZA VACCINE (#1) 2024 0, 08/14/2019, 08/14/2019 DTAP/TDAP/TD VACCINES (2 - T d or Tdap) 11/23/2025 11/23/2015 OSTEOPOROSIS SCREENING Completed 04/18/2017 Insurance [facility] Advance Directives For more information, please contact: [phone] * Full Code (Latest Code Status on File) Date Activated Date Inactivated Comments 07/15/2021 8:59 AM 07/15/2021 12:41 PM * Full Code Date Activated Date Inactivated Comments 08/23/2017 10:52 AM 08/23/2017 4:34 PM * Full Code Date Activated Date Inactivated Comments 08/23/2017 7:48 AM 08/23/2017 10:52 AM * Full Code Date Activated Date Inactivated Comments 04/28/2016 7:40 AM 04/28/2016 11:14 AM Care Teams Rib Cutter Relationship Specialty [place] [id number] [address] PCP - General Internal Medicine 02/18/21
--- OUTSIDE RECORDS SUMMARY | 2025-01-23 10:26 | XMS_ITS | Clinical Summary ---
Author Organization [facility] Address [address] [place] [address] Care Team Providers Care Senior Visual Designer Name Role Phone Wil Castro MD Unavailable [phone] Viktoria Andre MD Primary Care Provider [phone] Allergies Active Allergy Reactions Criticality Noted Date Comments Codeine Itching,Hallucinations Medium 07/31/2014 Reaction: HALLUCINATIONS, , Tylenol with codeine/ really agitated Latex Rash Low 04/28/2016 Nitrofurantoin Unknown Low 04/19/2019 Pt. Said she's still not sure of her reaction Macrobid -pt unsure of reaction Oxytetracycline Hives,Other (see comment) Medium 04/11/2023 Streptomycin Other (see comment) High 04/11/2023 Tape Rash Medium 07/31/2014 Paper tape is ok Medications multiple vitamins-minerals (AQUADEKS) Cap Take 1 capsule by mouth daily. Active calcium carb-cholecalcifer ol 600-400 MG-UNIT Tab tablet 1 tablet daily. Act manfred hydroCHLOROthiazid e (HYDRODIURIL) 25 MG tablet Take 1 tablet (25 mg total) by mouth daily. 06/08/20 22 Active fluorouracil (EFUDEX) 5 % cream Apply 1 Application topically. Active cholecalciferol (VITAMIN D-3) 125 MCG (5000 UT) Tab Take 1 tablet (5,000 Units total) by mouth daily. Active letrozole (FEMARA) 2.5 MG tablet Take 1 tablet by mouth daily. 11/21/19 24 Active VERZENIO 100 MG tablet 01/06/20 24 Active allopurinol (ZYLOPRIM) 100 MG tabletIndications: Hyperuricemia Take 1 tablet (100 mg total) by mouth daily. 90 tablet 3 01/07/20 24 Active methocarbamol (ROBAXIN) 500 MG tabletIndications: Chronic midline low back pain with sciatica, sciatica laterality unspecified Take 1 tablet twice daily as needed for back pain 60 tablet 2 01/16/20 24 Active SYRINGE-NEEDLE, DISP, 3 ML (B-D 3CC LUER-ASHLEY SYR 25GX5/8 ) 25G X 5/8 3 ML MiscIndications:Vi tamin B12 deficiency Use as directed with B12 injections 50 each 01/22/20 24 Active cholestyramine (QUESTRAN) 4 G packetIndications: Chronic diarrhea Take 1 packet (4 g total) by mouth 2 (two) times daily with meals. 60 each 2 02/15/20 24 Active montelukast (SINGULAIR) 10 MG tabletIndications: Environmental allergies Take 1 tablet (10 mg total) by mouth nightly at bedtime. 90 tablet 1 04/11/20 24 Active ketoconazole (NIZORAL) 2 % shampoo USE SHAMPOO 2 TIMES A WEEK LEAVE ON FOR 10 MINUTES THEN RINSE 03/14/20 24 Active triamcinolone (KENALOG) 0.1 % ointment 01/24/20 24 Active levothyroxine (EUTHYROX) 88 MCG tabletIndications: Hypothyroidism (acquired) Take 1 tablet (88 mcg total) by mouth every morning. 90 tablet 3 04/30/20 24 Active gabapentin (NEURONTIN) 100 MG capsuleIndications :Chronic midline low back pain with sciatica, sciatica laterality unspecified Take 1 capsule (100 mg total) by mouth 3 (three) times daily. 90 capsule 11 07/05/20 24 Active benzonatate (TESSALON PERLES) 100 MG capsuleIndications :Chronic cough,Bronchitis Take 1 capsule (100 mg total) by mouth 3 (three) times daily as needed. 30 capsule 09/21/20 24 Active losartan (COZAAR) 50 MG tabletIndications: Essential hypertension Take 2 tablets (100 mg total) by mouth daily. 60 tablet 11 09/21/20 24 Active pravastatin (PRAVACHOL) 10 MG tabletIndications: Mixed hyperlipidemia Take 1 tablet (10 mg total) by mouth daily. 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 Likely has degenerative changes in neck, shoulders, spine which may be contributing to her pain complaints. Overall symptoms appear stable. Has no clinical or serologic evidence of an inflammatory arthritis. Is noted pt not requiring any analgesics. Myalgia 11/04/2017 Overview (11/15/2019): Last Assessment & Plan: Has occasional stiffness in neck, shoulders, spine. [...] come back for follow up. F/u prn. Sicca (HHS/HCC) 11/04/2017 Overview (11/15/2019): Last Assessment & Plan: Has ongoing oral and ocular dryness. Does have parotid gland swelling on exam. Serology negative for Sjogren's. Pt encouraged to continue symptomatic treatment of sicca complaints. 1st degree AV block 08/18/2017 Abnormal cardiovascular stress test 08/18/2017 SIEGEL (dyspnea on exertion) 08/18/2017 Heart palpitations 08/18/2017 Mixed hyperlipidemia 08/18/2017 Systolic murmur 08/18/2017 Arthritis 07/10/2014 Unspecified cataract 07/10/2014 Cerumen impaction 08/23/2013 Essential hypertension 08/13/2013 Foot pain 07/26/2013 Low back pain 06/22/2013 Overview (11/15/2019): Last Assessment & Plan: Has ongoing low back pain. Is s/p L-spine fusion 10 years ago and is to have revision of this in 2 days. Per pt she has a nerve impingement and this may be contributing to her lower extremity pain described as intermittent sharp, stabbing pain. Gout 05/24/2013 Arthralgia of toe, unspecified laterality 2012 Edema 04/18/2013 Ovarian failure 04/18/2013 Flushing 03/20/2013 Physical deconditioning 03/20/2013 Cellulitis of ankle 01/19/2013 Chest congestion 08/10/2012 Limb pain 07/27/2012 Joint pain, hip 07/27/2012 Fatigue 07/12/2012 Vitamin B12 deficiency 07/12/2012 Resolved Problems Problem Noted Date Diagnosed Date Resolved Date Preoperative cardiovascular examination 08/18/2017 09/01/2020 Encounters Date Type Department Care Team Description 12/04/2024 Orders Only [facility] Family & Internal Medicine - [address] [address] Viktoria Andre MD 11/22/2024 Scan [employer] HEALTH INFO SRVCS Scanned, Doc Med Group Mammogram (SCAN) 11/19/2024 9:00 AM RECEIVING ROOM CLERK Office Visit [facility] Medical [facility] - [facility] [address] [facility], [address] [place] [address] Viktoria Andre MD Govindarajan, Raghav, MD EMG Testing (BUE-Carpal tunnel syndrome of rt wrist) 11/19/2024 Travel 11/12/2024 11:15 AM RECEIVING ROOM CLERK - 11/12/2024 11:59 PM RECEIVING ROOM CLERK Hospital Encounter [facility] [address] [place] [address] Mercedes Gleason, SPECIAL INSPECTOR-BC Ly Shearer, OT Edema Discharge Disposition: Home or Self Care (Routine Discharge) 11/12/2024 Travel from Last 3 Months Immunizations Name Administration Dates Next Due Fluad influenza vaccine, Nikko drivalent (aIIV4), Inactivated, adjuvanted, preservative free, 0.5 mL,IM use 08/19/2022,08/29/2021 Fluzone High Dose - >Age 65 (Prefilled Syringe) 08/26/2020,08/14/2019 Influenza Adult (Generic) 08/14/2019 MODERNA COVID-19 (12+) MRNA, LNP-S, PF, 100 MCG/ 0.5 ML DOSE 12/30/2020,11/27/2020 PFIZER COVID-19 (ORIGINAL FO RMULATION, PURPLE CAP) mRNA, LNP-S, PF, 30 MCG/0.3 ML DOSE 08/29/2021 Tdap (Adacel) 11/23/2015 Family History Medical History Relation Comments Cancer Daughter breast Heart Disease Father No Known Problems Maternal Grandfather No Known Problems Maternal Grandmother Alzheimers Mother Heart Disease Mother Hypertension Mother No Known Problems Paternal Grandfather No Known Problems Paternal Grandmother Relation Status Comments Daughter Father Maternal Grandfather Maternal Grandmother Mother Paternal Grandfather Paternal Grandmother Social History Tobacco Use Types Packs/Day Years Used Date Smoking Tobacco: Never Passive Smoke Exposure: Never Smokeless Tobacco: Never Tobacco Cessation:Counseling Given: Yes Alcohol Use Standard Drinks/Week Comments Yes 0 (1 standard drink = 0.6 oz pur e alcohol) occas. wine AUDIT-C Answer Date Recorded Frequency of Alcohol Consumption Monthly or less 01/09/2020 Average Number of Drinks 1 or 2 020 Frequency of Binge Drinking Never 12/29 PHQ-2 Answer Date Recorded Patient Health Questionnaire-2 Score 1 04/30/2024 Comments No Sex and Gender Information Value Date Recorded Sex Assigned at Female 01/09/2020 10:47 AM CDT Legal Sex Female 1:43 AM CDT Gender Identity Female 01/09/2020 10:47 AM CDT Sexual Orientation Straight 01/09/2020 10 :47 AM CDT Last Filed Vital Signs Vital Sign Reading Time Taken Comments Blood Pressure 168/74 09/21/2024 2:23 PM RECEIVING ROOM CLERK Pulse 77 09/21/2024 1:56 PM RECEIVING ROOM CLERK Temperature 36.7 C (98 F) 09/21/2024 1:56 PM RECEIVING ROOM CLERK Respiratory Rate 16 09/21/2024 1:56 PM RECEIVING ROOM CLERK Oxygen Saturation 95% 09/21/2024 1:56 PM RECEIVING ROOM CLERK Inhaled Oxygen Concentration - - Weight 64.9 kg (143 lb) 09/21/2024 1:56 PM RECEIVING ROOM CLERK Height 154.9 cm (5' 1 ) 09/21/2024 1:56 PM RECEIVING ROOM CLERK Body Mass Index 27.02 09/21/2024 1:56 PM RECEIVING ROOM CLERK Plan of Treatment Upcoming Encounters Date Type Department Care Team (Late st Contact Info) Description 02/07/2025 2:20 PM CDT Office Visit [facility] Medical Group Family & Internal Medicine - [place] [id number] [place] [address] [place] [address] [facility]. [address] [place] [address] Health Maintenance Due Date Last Done Comments Zoster Vaccines (1 of 2) 02/26/1988 Annual Medicare Wellness Visit 2003 Pneumococcal Vaccine: 65+ Years (1 of 1 - PCV) 2003 RSV Immunization or 60+ Years (1 - 1-dose 75+ series) 2013 COVID-19 Vaccine ( season) 2024 08/19/2022, 08/29/2021, 12/30/2020, Additional history exists Influenza Adult (#1) 2024 08/19/2022, 08/29/2021, 08/26/2020, Additional history exists PHQ-2 (Physician [place]) 10/31/2024 04/30/2024 DTaP, Tdap and Td Vaccines (2 - Td or Tdap) 11/23/2025 11/23/2015 Meningococcal B Vaccine Aged Out No l onger eligible based on patient's age to complete this topic Meningococcal Vaccine Aged Out No hillary gisela eligible based on patient's age to complete this topic RSV Immunizations Under 20 Months Aged Out No longer eligible based on patient's age to complete this topic Medical Devices Implanted Type Area Aircraft Power Plant Assembler Device Identifier Shelf Expiration Date Model / Serial / Lot Hip Components Hip Components Bilatera l: Hip Procedures Procedure Name Priority Date/Time Associated Diagnosis Comments MAMMOGRAM GENERIC (SCAN ORDER) 11/22/2024 EMG Routine 11/19/2024 9:00 AM RECEIVING ROOM CLERK Carpal tunnel syndrome of right wrist from Last 3 Months Results * MAMMOGRAM GENERIC (SCAN ORDER) (11/22/2024) Anatomical Region Laterality Modality Other 11/22/2024 us Doc Med Group Scanned SCANNING Final Resu lt * NCVS\EMG (OFallon) (11/19/2024 9:00 AM RECEIVING ROOM CLERK) Narrative Isidoro Telles MD - 11/19/2024 9:00 AM RECEIVING ROOM CLERK Isidoro Telles MD 11/19/2024 8:53 PM .Brief history: Ms. Powell and has numbness and tingling in the hands worse on the right as compared to left. Sometimes the symptoms wake her up at night, and affect her ADLs. There is no weakness. There is no neck pain. There is no symptoms in the feet. Limited Neurological Exam: On exam strength is 5 out of 5 in the upper limbs bilaterally. Reflexes are 2+ bilaterally in the upper limb. Vazquez's is negative. Tinel's sign was negative at the wrist and the elbow. Electrodiagnostic testing: For sensory nerve conduction studies, the amplitude is measured [id number], the latency reported is the distal peak latency, and the conduction velocity, if measured, is determined from onset latencies and is over the forearm. For motor nerve conduction studies, the amplitude is measured [id number], the latency reported is the distal onset latency, the conduction velocity is calculated over the forearm, and the F wave latency is the minimum latency. Unless otherwise noted, the hand temperature was monitored continuously and remained between 32 C and 36 C during the performance of the NCSs.The study was performed with a concentric needle electrode. Fibrillation and fasciculation activity is graded from none (0) to continuous (4+). The configuration and recruitment pattern of motor unit action potentials under voluntary control, if not normal, are described below. Abbreviations: NCS= nerve conduction study SNAP= sensory nerve action potential CMAP= compound muscle action potential MUP= motor unit potential EMG= electromyogram F IBS= fibrillations PS W's= positive sharp waves .CTS severity scale: mild: prolonged sensory nerve conduction latency, normal distal motor latency; moderate: prolonged sensory latency and prolonged distal motor latency; severe: absent sensory latency, prolonged distal motor latency Kristi SAWANT. A neurophysiological grading scale for carpal tunnel syndrome. Muscle Nerve. 1999;23(8):1280-3. Summary of findings: Bilateral median motor NCS shows normal latency Bilateral ulnar motor NCS is normal Bilateral median sensory NCS shows prolonged latency right worse than left Bilateral ulnar sensory NCS shows normal amplitude Bilateral radial sensory NCS is normal Bilateral median orthodromic mixed NCS shows prolonged latency with small amplitude right worse than left Right ulnar orthodromic mixed NCS shows normal amplitude Left ulnar orthodromic mixed NCS shows small amplitude Needle EMG of the right upper limb is normal Conclusion: This study shows evidence of a mild right median mononeuropathy at the wrist [carpal tunnel syndrome]. There is a incidentally noted left median mononeuropathy at the wrist. There is no evidence of a superimposed cervical radiculopathy or a ulnar mononeuropathy. Nerve conduction and EMG is an extension of history and examination. Clinical correlation is recommended for the electrodiagnostic findings. Viktoria Andre MD NEUROLOGY ORDERABLES Final Res ult from Last 3 Months Insurance MEDICARE [facility] Care Teams Senior Visual Designer Relationship Specialty [place] [id number] [address] [address] PCP - General FAMILY PRACTICE 04/12/23 Wil Castro MD [address] [place] [id number] INTERNAL MEDICINE 10/22/19
== END 2025-01-23 09:36 | disposition home or self-care (01) ==
LOC: ANHCARD 09:36
PROVIDERS: PCP Student in an Organized Health Care Education/Training Program; Visit Provider Internal Medicine Cardiovascular Disease
DX: R06.09 Other forms of dyspnea (principal); I38 Endocarditis, valve unspecified; I50.30 Unspecified diastolic (congestive) heart failure; I35.8 Other nonrheumatic aortic valve disorders; I35.0 Nonrheumatic aortic (valve) stenosis; I07.1 Rheumatic tricuspid insufficiency
CPT/HCPCS: 93306

== ENCOUNTER 2025-06-13 08:45 | Outpatient (CLI) | payer MEDICARE, SELFPAY ==
--- OUTSIDE RECORDS SUMMARY | 2025-06-13 08:53 | XMS_ITS | Continuity of Care Document ---
Author Organization [facility] Address [address] [place] [address] Phone Care Team Providers Care Health Science Writer Name Role Phone Arthur Melendez MD Unavailable Unavailable Advance Directives Directive Yes / No Effective Date File Name No Information Encounters Encounter Description Practice Location Reason(s) For Visit Diagnoses Date Provider Providers Copied on Encounter [facility], [address], [place], [place], [id number], [place] tel:[phone] [facility] No Information Nora Gibson. [address] , [place], [place], [id number], [place]. tel:[phone] Referring Provider: Marcelo Peterson, [address] , [place], [address]. tel:[phone] Family History Family Member Type Diagnosis Age At Onset No Information Payers Payer name Insurance type Covered democrat ID Authoriza tion(s) MED[place]ARE [place] [id number] [employer] MEDICARE SUPPELEMENT [place] [id number] Social History Type Description Quantity Date Captured [...]
--- OUTSIDE RECORDS SUMMARY | 2025-06-13 08:53 | XMS_ITS | Clinical Summary ---
Author Organization [facility] Address [facility] [place] [address] Care Team Providers Care E Commerce Specialist Name Role Phone Wil Castro MD Primary Care Provider [phone] Source Comments [facility],non-owned Affiliates and Associated Physician Practices is amultiple site organization consisting of ambulatory clinics and hospital sitesin [place], [place], [place] and [place]. This disclosure is being madepursuant to the Care Everywhere program and may not contain all information available regarding this patient. Last updated 18.[facility] Allergies Active Allergy Reactions Criticality Noted [...] document. Alwaysverify current medications with the patient. levothyroxine (SYNTHROID) 75 MCG tablet Take 75 [...] mcg into muscle every 7 days. Active Calcium-Magnesiu m-Vitamin D (CITRACAL SLOW RELEASE) 600-40-500 MG-MG-UNIT TB24 Take 1 Tab by mouth 2 times daily. Active lactase (LACTAID) 3000 UNITS tablet Take 1 Tab by mouth 4 times daily as needed with food for Other. Active oxyCODONE-acetam inophen (PERCOCET) 5-325 MG tablet Take 1 Tab by mouth every 4 hours as needed for Pain. 30 Tab 0 08/02/2014 Active hydrocodone-acet aminophen (NORCO) 5-325 MG tablet Take 1 Tab by mouth every 4 hours as needed for Pain. 30 Tab 0 08/02/2014 Active Social History Tobacco Use Types Packs/Day Years Used Date Smoking Tobacco: Never Smokeless Tobacco: Never Alcohol Use Standard Drinks/Week Comments Yes 0 (1 standard drink = 0.6 oz pur e alcohol) Rare Comments No Sex and Gender Information Value Date Recorded Sex Assigned at Not on file Legal Sex Female 4:26 PM CDT Gender Identity Not on file Sexual [...] 10:25 AM CDT Height 157.5 cm (5' 2.01) 08/01/2014 10:25 AM C DT Body Mass [...] - 1-dose 75+ series) 2013 COVID-19 VACCINE (1 - 2023-2 5 season) 2024 DEPRESSION SCREENING 10/31/2024 INFLUENZA VACCINE (#1) 2025 08/14/2019 HEPATITIS B VACCINE Aged Out No longe [...] this topic Medical Devices Implanted Type Area Joy Loading Machine Operator Device Identifier Shelf Expiration Date Model / Serial / Lot Allomend Implanted:Qty: 1 on 08/01/2014 by Cristian Gautam DPM at [facility] Left: Achilles Tendon [employer]ource 12/13/2015 [id number] / / [id number] Insurance MEDICARE [employer] GENERIC MEDICARE MEDICARE Advance Directives * Full Code (Latest Code Status on File) Date Activated Date Inactivated Comments 08/01/2014 5:24 PM 08/02/2014 5:46 PM Care Teams E Commerce Specialist Relationship Specialty Start Date End Date Wil Castro MD [address] [place] [address] [place] [id number] PCP - General Internal Medicine 07/30/14
--- OUTSIDE RECORDS SUMMARY | 2025-06-13 08:53 | XMS_ITS | Clinical Summary ---
Author Organization [facility] Address [address] [place] [address] Phone Care Team Providers Care Gis Coordinator Name Role Phone Zenobia Brandt MD Primary Care Provider [phone] Allergies Active Allergy Reactions Criticality Noted Date Comments Codeine Itching Low 08/23/2017 Latex Rash Low 04/28/2016 Medications levothyroxine 75 mcg tablet Take 75 mcg by mouth daily early head start director. Active olmesartan (BENICAR) 20 mg tablet Take [...] 9:03 AM CDT Height 157.5 cm (5' 2) 07/15/2021 9:03 AM CDT Body Mass Index 27.76 07/15/2021 9:03 AM CDT Plan of Treatment Health Maintenance Due Date Last Done Comments PNEUMOCOCCAL VACCINE 50+ YEA RS (1 of 1 - PCV) 02/26/1988 ZOSTER VACCINE (1 of 2) 02/26/1988 RSV VACCINE (60+ or ) (1 - 1-dose 75+ series) 2013 OSTEOPOROSIS SCREENING 04/18/2022 04/18/2017 INFLUENZA VACCINE (#1) 2025 0, 08/14/2019, 08/14/2019 DTAP/TDAP/TD VACCINES (2 - T d or Tdap) 11/23/2025 11/23/2015 Insurance [facility] Advance Directives For more information, please contact: [phone] * Full Code (Latest Code Status on File) Date Activated Date Inactivated Comments 07/15/2021 8:59 AM 07/15/2021 12:41 PM * Full Code Date Activated Date Inactivated Comments 08/23/2017 10:52 AM 08/23/2017 4:34 PM * Full Code Date Activated Date Inactivated Comments 08/23/2017 7:48 AM 08/23/2017 10:52 AM * Full Code Date Activated Date Inactivated Comments 04/28/2016 7:40 AM 04/28/2016 11:14 AM Care Teams Gis Coordinator Relationship Specialty [place] [address] [address] PCP - General Internal Medicine 02/18/21
--- OUTSIDE RECORDS SUMMARY | 2025-06-13 08:53 | XMS_ITS ---
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 Likely has degenerative changes in neck, shoulders, spine which may be contributing to her pain complaints. Overall symptoms appear stable. Has no clinical or serologic evidence of an inflammatory arthritis. Is noted pt not requiring any analgesics. Myalgia 11/04/2017 Assessment & Plan (11/15/2017 11:48 AM FEATHER SHAPER): Has occasional stiffness in neck, shoulders, spine. [...] prn. Assessment & Plan (11/04/2017 2:38 PM FEATHER SHAPER): Has has pain in bilat thighs>neck and [...] 11/04/2017 Assessment & Plan (11/15/2017 11:49 AM FEATHER SHAPER): Has ongoing oral and ocular dryness. Does have parotid gland swelling on exam. Serology negative for Sjogren's. Pt encouraged to continue symptomatic treatment of sicca complaints. Assessment & Plan (11/04/2017 2:37 PM FEATHER SHAPER): Has ongoing oral>ocular dryness. Does have parotid [...] surgery. Assessment & Plan (11/15/2017 11:43 AM FEATHER SHAPER): Has ongoing low back pain. Is s/p [...]
--- OUTSIDE RECORDS SUMMARY | 2025-06-13 08:53 | XMS_ITS | Clinical Summary ---
Author Organization [facility] [address] [facility] Address [address] [place] [address] Phone Care Team Providers Care Cotton Farmworker Name Role Phone Malik To MD Unavailable [phone] Carolina Dumont OD Unavailable [phone] Viktoria Andre MD Primary Care Provider [phone] Alok Cross DO Unavailable [phone] Allergies Active Allergy Reactions Criticality Noted Date Comments Adhesive Rash Medium 07/31/2014 Paper tape is ok Codeine Itching,Hallucinations Medium 07/31/2014 Tylenol with codeine/ really agitated Lactose Nausea & Vomiting Low 08/01/2014 Lactose intolerant-is ok to have with med-Lactaid Latex Rash,Swelling Medium 07/31/2014 Rubber gloves/ swelling of hands and rash Nitrofurantoin Unknown Low Macrobid-pt unsure of reaction Oxytetracycline Hives,Mental status changes Medium Streptomycin Hypotension High Medications olmesartan (BENICAR) 20 mg tabletIndication s:hypertension,i f elevated BP Take 1 tablet (20 mg total) by mouth as needed Active cholecalciferol (VITAMIN D-3) 5,000 unit tabletIndication s:Vitamin D Deficiency Take 1 tablet (5,000 Units total) by mouth aircraft steel fabricator before breakfast Active pravastatin (PRAVACHOL) 10 mg tabletIndication s:hyperlipidemia Take 1 tablet (10 mg total) by mouth nightly Active calcium carb and citrate-vitD3 600 mg-12.5 mcg (500 unit) tablet extended releaseIndicatio ns:Prevention of Vitamin D Deficiency,Vitam in D Deficiency Take 1 tablet by mouth aircraft steel fabricator before breakfast Active multivit-min/iro n/folic/iyj943 (HAIR, SKIN AND NAILS ADVANCED ORAL) Take 1 tablet by mouth aircraft steel fabricator before breakfast Active C,E,zinc,copper 11/qnmre4n/lut (OCUVITE ADULT 50 PLUS ORAL)Indications :eye health Take 1 capsule by mouth aircraft steel fabricator before breakfast Active hydrOXYzine (ATARAX) 25 mg [...] 1 tablet (25 mg total) by mouth aircraft steel fabricator before breakfast 2 Active cyanocobalamin (Vitamin B-12) [...] aspirin 81 mg chewable tablet 3 Active metoprolol XL (TOPROL-XL) 25 mg extended release tablet Take 0.5 tablets (12.5 mg total) by mouth daily 5 Active Active Problems Problem Noted Date Diagnosed Date Atherosclerosis of artery of both lower extremit ies 02/05/2022 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 Likely has degenerative changes in neck, shoulders, spine which may be contributing to her pain complaints. Overall symptoms appear stable. Has no clinical or serologic evidence of an inflammatory arthritis. Is noted pt not requiring any analgesics. Myalgia 11/04/2017 Assessment & Plan (11/15/2017 11:48 AM OLIVE GROWER): Has occasional stiffness in neck, shoulders, spine. [...] prn. Assessment & Plan (11/04/2017 2:38 PM OLIVE GROWER): Has has pain in bilat thighs>neck and [...] 11/04/2017 Assessment & Plan (11/15/2017 11:49 AM OLIVE GROWER): Has ongoing oral and ocular dryness. Does have parotid gland swelling on exam. Serology negative for Sjogren's. Pt encouraged to continue symptomatic treatment of sicca complaints. Assessment & Plan (11/04/2017 2:37 PM OLIVE GROWER): Has ongoing oral>ocular dryness. Does have parotid [...] surgery. Assessment & Plan (11/15/2017 11:43 AM OLIVE GROWER): Has ongoing low back pain. Is s/p [...] Never 12/24/2022 Personal Safety Answer Date Recorded Have you ever been in or are you currently in a harmful physical or emotional relationship or is someone making you feel afraid or unsafe? Denies 02/18/2023 Comments Unknown Sex and Gender Information Value Date Recorded Sex Assigned at Not on file Legal Sex Female 6:57 AM OLIVE GROWER Gender Identity Not on file Sexual Orientation [...] 68.9 kg (152 lb) 12/24/2022 8:50 AM OLIVE GROWER Height 154.9 cm (5' 1) 12/24/2022 8:50 AM OLIVE GROWER Body Mass Index 28.72 12/24/2022 8:50 AM OLIVE GROWER Plan of Treatment Health Maintenance Due Date Last Done Comments Depression Screening 1940 Osteoporosis Screening-Bone Density Scan 1940 Hepatitis B Screening 02/26/1956 Pneumococcal vaccine 65+ (1 of 2 - PCV) 1957 Zoster Vaccine (1 of 2) 1957 Well Visit 65+ 2003 Fall Risk Assessment 02/19/2024 02/18/2023 Covid-19 Vaccine ( season) 2024 08/29/2021, 12/30/2020, 11/27/2020 Influenza Vaccine (#1) 2025 08/14/2019, 2018 DTaP/Tdap/Td Vaccine (2 - Td or Tdap) 11/23/2025 Insurance MEDICARE [facility] OTHER Address: [address] [place] [address] MEDICARE [employer] MEDICARE SUPPLEMENT MEDICARE [facility] Advance Directives For more information, please contact: [phone] Documents on File Type Date Recorded Patient Barrel Racer Expl anation ADVANCE DIRECTIVE 11/17/2017 Advance Di rective Checklist Care Teams Cotton Farmworker Relationship Specialty [place] [address] [address] [place] [address] PCP - General Family Medicine 07/11/23 Malik To MD [address] [facility] [address] [place] [address] Rheumatology 11/15/17 Carolina Dumont OD [address] [place] [id number] News Production Supervisor 06/03/23 Alok Cross DO [address] [facility] [address] [place] [address] Cardiology 07/11/23
--- NOTE | 2025-06-27 20:24 | WPDSLEEPSTUD ---
Sleep Study Date of Study: 06/13/25 Ordering Provider: Alok Cross DO Interpreting Physician: Odalys Traylor MD Sleep Study Type: Split Polysomnogram Height: 1.55 m Weight: 65.317 kg Body Mass Index: 27.1 Neck Circumference (inches): 14 [place]: 19 Reason for Sleep Study Hypersomnolence; history of obstructive sleep apnea, last use of CPAP was 2018 * 03/02/2016, mild obstructive sleep apnea; 11/29/2016, CPAP 6 cm was the optimal pressure. BMi was 28, similar to now. Sleep History Es Powell is an 85-year-old woman with excessive daytime sleepiness and witnessed apneas. she has a history of obstructive sleep apnea, last use PAP therapy and 2018. She is so sleepy she can fall asleep sitting upright while reading. She awakens from sleep short of breath. She rarely wakes at night with heartburn, belching or coughing.??She frequently snores, and frequently snores loudly enough that others complain. She occasionally has trouble sleeping when she has a cold. She rarely wakes up gasping for breath during the night. She occasionally has breathing problems at night witnessed by others. She never sweats excessively at night. She never notices her heart pounding or beating irregularly during the night. She frequently falls asleep during the day. She frequently falls asleep involuntarily, never falls asleep while driving. She never experiences loss of muscle tone with strong emotion. She never feels paralyzed on waking or falling asleep. She never experiences vivid dreams upon waking or falling asleep. She never feels afraid of going to sleep. She never has nightmares. She rarely recalls her dreams. She never has thoughts racing through her mind. She never feels sad, depressed, or anxious. She occasionally notices parts of her body jerk. She never kicks during the night. She rarely feels crawling or aching feelings in her legs. She never feels leg pain at night. She never has morning jaw pain, although she constantly grinds her teeth at night. She frequently feels bothered by pain during the day, is frequently awakened by pain during the night. She never wakes up feeling stiff in the morning, never wakes feeling sore or achy in the morning. She never awakens with pain in her neck, spine, or joints. She has memory problems, concentration difficulties, and bowel disturbances. Normal bedtime is 10:30 p.m., falling asleep sometimes quickly and at other times taking several hours to get to sleep. she wakes between 3 and 4 times during the night to urinate and get a drink. After these awakenings, she may require a half hour to return to sleep. She wakes at 8:00 a.m., reports getting 6 hours of sleep per night. She keeps the same schedule on weekends. she takes naps in the afternoon or evening. A short nap lasting 10-15 minutes may be refreshing. Most of the time she feels good on waking. She feels better in the morning compared to other times of day. Habits:??Tobacco: Never smoker Caffeine: one per day Alcohol: none Recreational substances: none PMFSH Past Medical History Medical History (Updated 06/27/25 @ 20:34 by Odalys Traylor MD) EVY (obstructive sleep apnea) Essential hypertension CAD in [place] artery Thyroid disease Hypertension Arthritis Surgical History Surgical History History of Achilles tendon repair History of repair of rotator cuff History of laminectomy History of hand surgery History of hip replacement History of cholecystectomy History of hysterectomy Family History Family History Father Family history of heart disease in male family member before age 55 Mother Family history of heart disease in male family member before age 55 Other Family history of Alzheimer's disease Family history of arthritis Family history of cardiovascular disease Family history of lung disease Social History Social History (Updated 06/11/25 @ 13:40 by Vale German MA) Smoking status: Never smoker Alcohol intake: never Substance use: never Substance use type: does not use Do You Feel Safe in your Home?: Yes Lack of Transportation: No Lack of Food: Never True Current Housing: I Have Housing Concerned About Future Housing: No Difficulty Paying Gas/Electric Bills: No Difficulty Paying for Meds: No Currently Unemployed: No Education: Don't Know Difficulty w/ Childcare or Family Care: No Spiritual care concerns: No Medications Home Medications ?Medication ?Instructions ?Recorded ?Confirmed ?Type calcium 250 mg (as 1 tablet PO DAILY 09/17/19 06/11/25 History citrate)-vitamin D3 5 mcg (200 unit) tablet (Citracal Regular) cholecalciferol (vitamin D3) 125 5,000 unit PO DAILY 09/17/19 06/11/25 History mcg (5,000 unit) capsule montelukast 10 mg tablet 10 mg PO DAILY 09/17/19 06/11/25 History (Singulair) pravastatin 10 mg tablet 10 mg PO DAILY 09/17/19 06/11/25 History vitamin A-vitamin C-vit E-min 1 tablet PO DAILY 09/17/19 06/11/25 History tablet vitamin [id number] B1 1,000 1 ml IM WEEKLY 09/17/19 06/11/25 History mcg-100 mg/mL injection solution hydroxyzine HCl 25 mg tablet 25 mg PO BID PRN Anxiety 05/06/23 06/11/25 History gabapentin 100 mg capsule 100 mg PO TID 12/13/23 06/11/25 History letrozole 2.5 mg tablet 2.5 mg PO DAILY 12/13/23 06/11/25 History levothyroxine 88 mcg tablet 88 mcg PO DAILY 12/13/23 06/11/25 History methocarbamol 500 mg tablet 500 mg PO BID 12/13/23 06/11/25 History [id number]- 250 mg-dha 90 1 cap PO DAILY 12/13/23 06/11/25 History mg-epa 160 eq-ttpo-dfir-zeax capsule (Ocuvite Adult 50 Plus) triamcinolone acetonide 0.1 % See Rx Instructions .Route 01/24/24 06/11/25 Rx topical ointment .COMPLEX #30 grams hydrochlorothiazide 25 mg tablet See Rx Instructions .Route 04/10/24 06/11/25 Rx .COMPLEX #90 tabs metoprolol succinate 25 mg 12.5 mg (1/2 x 25 mg) PO DAILY #45 01/16/25 06/11/25 Rx tablet,extended release 24 hr tabs abemaciclib 50 mg tablet (Verzenio) 50 mg PO BID 06/11/25 06/11/25 History donepezil 5 mg disintegrating 5 mg PO DAILY 06/11/25 06/11/25 History tablet losartan 50 mg tablet See Rx Instructions .Route .COMPLEX 06/11/25 06/11/25 History Sleep Procedure A split night polysomnogram using the [place] multi-channel system recorded the standard physiologic parameters including EEG, EOG, submentalis EMG, anterior tibialis EMG, EKG, body position, nasal and oral airflow using nasal pressure sensor and thermistor. Respiratory parameters of chest and abdominal movements were recorded with Respiratory Inductance Plethysmography belts. Oxygen saturation was recorded by pulse oximetry. Video monitoring was also performed. Sleep stages, periodic limb movements, and EEG arousals were scored in 30 second epochs according to the criteria of the AASM Scoring Manual. The Apnea-Hypopnea Index was calculated using CMS guidelines for definition of hypopnea while scoring respiratory events. After the baseline portion the patient met criteria for a titration with an AHI of 7.9 and desaturation to 84%. She started CPAP using a medium ResMed AirFit F40 FFM which was later changed to a ResMed Small AirFit F20 FFM. initial pressure was 5 cm, titrated to 7 cm, CPAP 9 cm, CPAP 11 cm and CPAP 13 cm. She had fragmented sleep throughout the night with frequent shifts between wake, stage I, stage II with 1 consolidated episode of REM during the baseline and this was in the right lateral position. During the titration the patient had intense back pain and she said that she had a difficult time staying asleep because of this. The highest pressure achieved was 13 cm. at 11 cm of water pressure, the patient had supine REM. At CPAP 11, she spent 28 minutes bed, 7.5 minutes awake, 9 minutes in non-REM and 11.5 minutes in REM. Sleep efficiency was 73.2%. The residual AHI was elevated 32.2 and the lowest saturation was 91%. She had excessive leg movements through out the night. Her supine AHI was higher on both portions. At CPAP 13 her residual AHI was 12, no REM. Sleep Architecture During the diagnostic portion of the study, the total recording time was 257.1 minutes. The total sleep time was 183.0 minutes. Sleep latency was 8.6 minutes.? REM latency was 114.0 minutes. Sleep Efficiency was 71.2%. The patient had 32 awakenings for an awakening index of 10.5. Wake after sleep onset time was 65.5 minutes. The patient spent 41.5 minutes, 22.7% of total sleep time in Stage N1. The patient spent 98.0 minutes, 53.6% in Stage N2. The patient spent 15.5 minutes, 8.5% in Stage N3. The patient spent 28.0 minutes, 15.3% in Stage REM sleep. At 01:27:45 AM the patient was placed on PAP treatment. During the treatment portion of the study, the total recording time was 229.9 minutes.? The total sleep time was 115.0 minutes. Sleep latency was 24.0 minutes. REM latency was 78.5 minutes. Sleep Efficiency was 50.0%. Wake after Sleep Onset time was 90.5 minutes. The patient spent 39.5 minutes, 34.3% of total sleep time in Stage N1. The patient spent 55.0 minutes, 47.8% in Stage N2. The patient spent no time in Stage N3. The patient spent 20.5 minutes, 17.8% in Stage REM. Sleep was fragmented during the titration. Respiratory Analysis During the diagnostic portion of the study, the patient had 10 hypopneas, 15 obstructive apneas, no mixed apneas, and no central apneas for an overall Apnea Hypopnea Index of 7.9 events per hour. The REM Apnea Hypopnea Index was 10.7. The NREM Apnea Hypopnea Index was 9.3. The patient had a Central Apnea Hypopnea Index of 0. There were no Respiratory Effort Related Arousals.. The Respiratory Disturbance Index is 10.8 events per hour. There was no evidence of Deonte-Benoit Respirations. The supine apnea-hypopnea index was 31.3. During the treatment portion of the study, the patient had 9 hypopneas, 20 obstructive apneas, no mixed apneas, and 1 central apnea for an overall Apnea Hypopnea Index of 15.7 events per hour. The REM Apnea Hypopnea Index was 41.0. The NREM Apnea Hypopnea Index was 10.2. The patient had a Central Apnea Hypopnea Index of 0.5. There were no Respiratory Effort Related Arousals. The Respiratory Disturbance Index is 16.2 events per hour. There was no evidence of Deonte-Benoit Respirations. The supine apnea-hypopnea index was 21.7. The nonsupine apnea-hypopnea index was 9.5. Arousals During the diagnostic portion of the study, there were a total of 110 arousals for an arousal index of 36.1. There were 17 respiratory arousals for an index of 5.6. There were 36 periodic limb movement arousals for an index of 11.8. There were 25 isolated limb movement arousals for an index of 8.2. There were 33 spontaneous arousals for an index of 10.8. During the treatment portion of the study, there were a total of 88 arousals for an index of 45.9. There were 14 respiratory arousals for an index of 7.3. There were 21 periodic limb movement arousals for an index of 11.0. There were 18 isolated limb movement arousals for an index of 9.4. There were 35 spontaneous arousals for an index of 18.3. Periodic Limb Movements During the diagnostic portion of the study, the patient had 45 isolated limb movements with an index of 14.8. The patient had 63 periodic limb movements with an index of 20.7. The patient had a total of 108 limb movements with a total limb movement index of 35.4. During the treatment portion of the study, the patient had 22 isolated limb movements with an index of 11.5. The patient had 26 periodic limb movements with an index of 13.6. The patient had a total of 48 limb movements with a total limb movement index of 25.0. Oximetry Data During the diagnostic portion of the study, the patient had an average oxygen saturation of 95% in wake with a minimum oxygen saturation of 85% and a maximum oxygen saturation of 98%. The patient had an average oxygen saturation of 93.6% in sleep with a minimum oxygen saturation of 84% and a maximum oxygen saturation of 98%. The patient had 32 oxygen desaturations resulting in an Oxygen Desaturation Index of 10.5. The patient spent 1 minute, 0.4% of total sleep time with an oxygen saturation less than 88%. During the treatment portion of the study, the patient had an average oxygen saturation of 95.7% in wake with a minimum oxygen saturation of 76% and a maximum oxygen saturation of 99%. The patient had an average oxygen saturation of 95.7% in sleep with a minimum oxygen saturation of 81% and a maximum oxygen saturation of 99%. The patient had 22 oxygen desaturations resulting in an Oxygen Desaturation Index of 11.5. The patient spent 2.7 minutes, 1.2% of total sleep time with an oxygen saturation less than 88%. Snoring Profile Snoring was mild and intermittent, eliminated during the titration. Cardiac Profile EKG showed sinus rhythm with first-degree AV block, average pulse rate was 70.5 bpm.? The minimum pulse rate was 46 bpm. The maximum pulse rate was 107 bpm. Rare PVC. No arrhythmias noted. During the treatment portion of the study, the EKG showed normal sinus rhythm with first degree AV block, average pulse rate was 56.4 bpm.? The minimum pulse rate was 42 bpm. The maximum pulse rate was 88 bpm. Rare PVC. No arrhythmias noted. EEG Profile Unremarkable, no evidence of seizures. Assessment and Plan Assessment and Plan (1) EVY (obstructive sleep apnea): Code(s): G47.33 - Obstructive sleep apnea (adult) (pediatric) Status: Acute Assessment and Plan: This split night sleep study on 06/13/2025 shows mild obstructive sleep apnea, the baseline apnea-hypopnea index was 7.9 with desaturation 84% She had a challenging CPAP portion. Her sleep was fragmented throughout the night. Events were worse in the supine position. The patient was able to achieve supine REM at CPAP 11 cm. She continued to have events at CPAP 13 cm. I recommend CPAP 14 cm using a small ResMed AirFit F20 fullface mask with heated humidity. The patient should be prescribed this ResMed equipment as well as tubing, filters and reservoir. This should be used with all episodes of sleep, including naps. I recommend the patient avoid sleeping on her back, if possible. This will lower her apnea-hypopnea index. She can accomplish this using pillow on her abdomen and back to prevent rolling supine. She should limit naps, and avoid napping in the afternoon to increase her ability to get more sleep at night. Compliance should be reviewed within 31-90 days of starting therapy for usage greater than 4 hours per night greater than 70% of the nights. The patient should be asked about symptoms such as excessive daytime sleepiness, quality of sleep, decreased nocturia, increased mental functioning such as memory, mood, and concentration. She has complaints of frequent grinding of her teeth. Untreated obstructive sleep apnea can aggravate bruxism. Bruxism was not noted on this test however at times this can be difficult to see. she should consult with her dentist for evidence of damage to her teeth. She may require a mouth guard to treat this problem. She had significant leg movements during this study, however the leg movements did not lead to arousals. She does not complain of kicking at night or significant uncomfortable feelings in her legs at night. This does not appear to be a clinical issue. Data The data obtained during this sleep study is adequate for interpretation. Certification This sleep study has been reviewed by a board certified sleep medicine physician.
[2025-06-27 21:31] VITALS: BMI 27.1
== END 2025-06-14 06:19 | disposition home or self-care (01) ==
LOC: ANHCSM 08:48
PROVIDERS: Visit Provider Internal Medicine Cardiovascular Disease
DX: G47.33 Obstructive sleep apnea (adult) (pediatric) (principal); Z99.89 Dependence on other enabling machines and devices
CPT/HCPCS: 95810; 95811